=== PATIENT | female | born 1950 | race Two or more races ===

== ENCOUNTER 2022-01-03 05:59 | Day surgery (SDC) | payer OTHER ==
[~2022-01-03 05:59] MED LIST: ALBUTERO IH; BREO IH; SINGULAIR10 MG PO; ZESTRIL20 MG PO
== END 2022-01-03 10:00 | disposition home or self-care (01) ==
LOC: CIR.AMB 05:59
PROVIDERS: ATTEND Surgery Surgery of the Hand
DX: M65.841 Other synovitis and tenosynovitis, right hand (principal); I10 Essential (primary) hypertension; J45.909 Unspecified asthma, uncomplicated; E66.9 Obesity, unspecified